=== PATIENT | female | born 1980 | race Caucasian/White ===

== ENCOUNTER 2020-05-12 16:15 | Emergency (ER) | payer SELFPAY ==
[~2020-05-12] VITALS: Ht 160 cm; Wt 45.4 kg
[2020-05-12 16:27] VITALS: BP 113/70
--- NOTE | 2020-05-12 17:05 | NUR ---
Chaperoned Ha Elder and Dr. Villegas for exam. Patient discharged to home in stable condition. Written and verbal after care instructions given. Patient verbalizes understanding of instruction.
== END 2020-05-12 17:06 | disposition home or self-care (01) ==
LOC: ER 16:20
DX: L73.8 Other specified follicular disorders (principal)